=== PATIENT | female | born 2000 | race Caucasian/White ===

== ENCOUNTER 2021-11-24 10:08 | Inpatient (IN) | payer OTHER ==
[~2021-11-24] VITALS: Ht 167.6 cm; Wt 59.9 kg
[2021-11-24] MEDS ORDERED: QUEtiapine FUMARATE 25 MG TABLET PO ONE (10:45)
[2021-11-24] MEDS ORDERED: DIAZEPAM 5 MG/ML 2 ML SYRINGE IM ONE (10:45)
[2021-11-24] MEDS ORDERED: DiphenhydrAMINE HCL 50 MG/ML VIAL IM ONE (12:45)
[2021-11-24] MEDS ORDERED: HALOPERIDOL LACTATE 5 MG/ML VIAL IM ONE (12:45)
[2021-11-24] MEDS ORDERED: ZIPRASIDONE MESYLATE 20 MG/VIAL IM ONE (14:00)
[2021-11-24] MEDS ORDERED: QUEtiapine FUMARATE 100 MG TABLET PO PRN (14:30)
[2021-11-24] MEDS ORDERED: ZOLPIDEM TARTRATE 10 MG TABLET PO PRN (14:30)
[2021-11-24] MEDS ORDERED: LORazepam 2 MG TABLET PO PRN (14:30)
[2021-11-24 14:39] LABS: COVID AG,FIA SOURCE NASAL SWAB
[2021-11-24 15:21] LABS: BASOPHILS % (AUTO) 0.3 % (0.0-2.0); EOSINOPHILS % (AUTO) 0.1 % (1.0-6.0); HEMATOCRIT 38.3 % (36-46); LYMPHOCYTES # (AUTO) 1.4 K/uL (1.0-4.8); LYMPHOCYTES % (AUTO) 17.6 % (22.0-44.0); MEAN CORPUSCULAR HEMOGLOBIN 30.3 pg (26.0-34.0); MEAN CORPUSCULAR HGB CONC 33.9 G/dL (31.0-37.0); MEAN CORPUSCULAR VOLUME 90 fL (80-100); MONOCYTES # (AUTO) 0.3 K/uL (0.1-1.0); MONOCYTES % (AUTO) 3.6 % (2.0-9.0); NEUTROPHILS # (AUTO) 6.1 K/uL (1.8-7.7); NEUTROPHILS % (AUTO) 78.4 % (40.0-70.0); PLATELET COUNT (AUTO) 216 K/uL (150-450); RED BLOOD CELL COUNT(AUTO) 4.28 MIL/uL (4.00-5.20); RED CELL DISTRIBUTION WIDTH 12.8 % (11.5-14.5)
[2021-11-24 15:30] LABS: ANION GAP 8 mmol/L (8-16); CARBON DIOXIDE 26 mmol/L (22-29); CHLORIDE 108 mmol/L (98-107); CREATININE 0.72 mg/dL (0.60-1.30); GLOMERULAR FILTR. RATE CALC > 60 mL/min (>60); GLUCOSE,RANDOM 109 mg/dL (70-110); POTASSIUM 3.2 mmol/L (3.5-5.1); SODIUM SERUM 142 mmol/L (136-145); UREA NITROGEN, BLOOD 7 mg/dL (7-18)
[2021-11-24 15:36] LABS: ALANINE AMINOTRANSFERASE 17 U/L (12-78); ALKALINE PHOSPHATASE 62 U/L (46-116); ASPARTATE AMINOTRANSFERASE 14 U/L (15-37); BILIRUBIN,TOTAL 0.6 mg/dL (0.1-1.0); TOTAL PROTEIN, SERUM 7.5 g/dL (6.4-8.2)
[2021-11-24] MEDS ORDERED: POTASSIUM CHLORIDE 10% 40 MEQ/30 ML LIQUID UDCUP PO ONE (15:45)
[2021-11-24 16:24] LABS: AMPHET/METH SCREEN,URINE NEGATIVE (NEGATIVE); BARBITURATE SCREEN, URINE NEGATIVE (NEGATIVE); BENZODIAZEPINES SCREEN,URINE POSITIVE (NEGATIVE); CANNABINOID SCREEN,URINE POSITIVE (NEGATIVE); COCAINE SCREEN,URINE NEGATIVE (NEGATIVE); METHADONE SCREEN, URINE NEGATIVE (NEGATIVE); OPIATE SCREEN,URINE NEGATIVE (NEGATIVE)
[2021-11-24 16:25] LABS: PHENCYCLIDINE SCREEN,URINE NEGATIVE (NEGATIVE)
[2021-11-24 17:30] VITALS: BP 118/70
[2021-11-25 00:12] VITALS: BP 112/67
[2021-11-25] MEDS ORDERED: ONDANSETRON HCL 4 MG TABLET PO PRN (07:00)
[2021-11-25] MEDS ORDERED: PETROLATUM,WHITE 28 GM JELLY TP PRN (07:00)
[2021-11-25] MEDS ORDERED: LOPERAMIDE HCL 2 MG CAPSULE PO PRN (07:00)
[2021-11-25] MEDS ORDERED: DOCUSATE SODIUM 100 MG CAPSULE PO PRN (07:00)
[2021-11-25] MEDS ORDERED: CloNIDine HCL 0.1 MG TABLET PO PRN (07:00)
[2021-11-25] MEDS ORDERED: NICOTINE 14 MG/24 HOUR PATCH TD PRN (07:00)
[2021-11-25] MEDS ORDERED: MAG HYDROX/AL HYDROX/SIMETH ES 30 ML SUSPENSION UDCUP PO PRN (07:00)
[2021-11-25] MEDS ORDERED: ALBUTEROL SULFATE HFA 90 MCG/PUFF 8 GM INHALER IH PRN (07:00)
[2021-11-25] MEDS ORDERED: ACETAMINOPHEN 325 MG TABLET PO PRN (07:00)
[2021-11-25] MEDS ORDERED: GuaiFENesin/D-METHORPHAN [SUGAR-FREE] 200-20MG/10 ML SYRUP UDCUP PO PRN (07:00)
[2021-11-25] MEDS ORDERED: MAGNESIUM HYDROXIDE SUSPENSION 30 ML UDCUP PO PRN (07:00)
[2021-11-25] MEDS ORDERED: IBUPROFEN 400 MG TABLET PO PRN (07:00)
[2021-11-25 08:15] VITALS: BP 120/72
[2021-11-25] MEDS ORDERED: QUET100T34 PO (09:56)
[2021-11-25] MEDS ORDERED: LAMO100 PO (09:56)
[2021-11-25] MEDS: LamoTRIgine 100 MG TABLET PO SCH ×2 (10:00→20:08)
[2021-11-25 16:37] VITALS: BP 110/72
[2021-11-25] MEDS: QUEtiapine FUMARATE 100 MG TABLET PO SCH (20:08)
[2021-11-26 06:05] VITALS: BP 104/62
[2021-11-26 08:19] VITALS: BP 116/74
[2021-11-26] MEDS: LamoTRIgine 100 MG TABLET PO SCH ×2 (08:19→20:37)
[2021-11-26] MEDS ORDERED: NORG1TAB14 PO (14:47)
[2021-11-26 16:54] VITALS: BP 119/82
[2021-11-26] MEDS: QUEtiapine FUMARATE 100 MG TABLET PO SCH (20:37)
[2021-11-27 00:18] VITALS: BP 112/80
[2021-11-27 08:12] VITALS: BP 125/74
[2021-11-27] MEDS: LamoTRIgine 100 MG TABLET PO SCH (09:02)
[2021-11-27] MEDS ORDERED: LAMO100 PO (12:48)
[2021-11-27] MEDS ORDERED: QUET100T34 PO (12:48)
[2021-11-27 16:16] VITALS: BP 109/69
== END 2021-11-27 16:30 | disposition home or self-care (01) | DRG 885 ==
LOC: EMS 10:10 → B3A 15:46
PROVIDERS: ADMIT Psychiatry & Neurology Psychiatry; ATTEND Psychiatry & Neurology Psychiatry
DX: F31.2 Bipolar disorder, current episode manic severe with psychotic features (principal); Z20.822 Contact with and (suspected) exposure to COVID-19; F29 Unspecified psychosis not due to a substance or known physiological condition; G47.00 Insomnia, unspecified; E87.6 Hypokalemia; Z91.51 Personal history of suicidal behavior
CPT/HCPCS: 80053; 84132; 85025; G0480; J1200; J1630; J3486

== ENCOUNTER 2022-01-24 22:42 | Inpatient (IN) | payer OTHER ==
[~2022-01-24] VITALS: Ht 167.6 cm; Wt 60.3 kg
[~2022-01-24 22:42] MED LIST: LAMO100 PO; QUET100T34 PO
[2022-01-24] MEDS ORDERED: PERTUSS(ACELL),DIPH,TET VAC/PF 0.5 ML SYRINGE IM. ONE (23:30)
[2022-01-24] MEDS ORDERED: SODIUM CHLORIDE 0.9% 250 ML IRRIG SOLUTION BOTTLE IRRIG ONE (23:30)
[2022-01-24 23:50] LABS: COVID AG,FIA SOURCE NASOPHARYNGEAL
[2022-01-25] MEDS ORDERED: ZOLPIDEM TARTRATE 10 MG TABLET PO PRN (06:00)
[2022-01-25] MEDS ORDERED: HALOPERIDOL 5 MG TABLET PO PRN (06:00)
[2022-01-25] MEDS ORDERED: LORazepam 2 MG TABLET PO PRN (06:00)
[2022-01-25 20:32] VITALS: BP 119/69
[2022-01-26] MEDS ORDERED: PETROLATUM,WHITE 28 GM JELLY TP PRN (07:45)
[2022-01-26] MEDS ORDERED: ALBUTEROL SULFATE HFA 90 MCG/PUFF 8 GM INHALER IH PRN (07:45)
[2022-01-26] MEDS ORDERED: LOPERAMIDE HCL 2 MG CAPSULE PO PRN (07:45)
[2022-01-26] MEDS ORDERED: DOCUSATE SODIUM 100 MG CAPSULE PO PRN (07:45)
[2022-01-26] MEDS ORDERED: ONDANSETRON HCL 4 MG TABLET PO PRN (07:45)
[2022-01-26] MEDS ORDERED: CloNIDine HCL 0.1 MG TABLET PO PRN (07:45)
[2022-01-26] MEDS ORDERED: GuaiFENesin/D-METHORPHAN [SUGAR-FREE] 200-20MG/10 ML SYRUP UDCUP PO PRN (07:45)
[2022-01-26] MEDS ORDERED: ACETAMINOPHEN 325 MG TABLET PO PRN (07:45)
[2022-01-26] MEDS ORDERED: NICOTINE 14 MG/24 HOUR PATCH TD PRN (07:45)
[2022-01-26] MEDS ORDERED: MAG HYDROX/AL HYDROX/SIMETH ES 30 ML SUSPENSION UDCUP PO PRN (07:45)
[2022-01-26] MEDS ORDERED: MAGNESIUM HYDROXIDE SUSPENSION 30 ML UDCUP PO PRN (07:45)
[2022-01-26 08:19] VITALS: BP 116/71
[2022-01-26] MEDS ORDERED: LEVONORGESTREL 1.5 MG TABLET PO ONE (12:00)
[2022-01-26] MEDS: IBUPROFEN 400 MG TABLET PO PRN (12:33)
[2022-01-26 20:21] VITALS: BP 116/69
[2022-01-26] MEDS ORDERED: QUEtiapine FUMARATE 100 MG TABLET PO SCH (21:00)
[2022-01-27 08:22] VITALS: BP 109/63
[2022-01-27] MEDS ORDERED: QUET100T34 PO (10:51)
[2022-01-27] MEDS: IBUPROFEN 400 MG TABLET PO PRN (12:22)
== END 2022-01-27 13:26 | disposition home or self-care (01) | DRG 885 ==
LOC: EMS 22:43 → B3A 01-25 15:19
PROVIDERS: ADMIT Psychiatry & Neurology Psychiatry; ATTEND Psychiatry & Neurology Psychiatry
PROC: 3E0234Z Introduction of Serum, Toxoid and Vaccine into Muscle, Percutaneous Approach (ICD-10-PCS; principal; 2022-01-24)
DX: F31.2 Bipolar disorder, current episode manic severe with psychotic features (principal); Z20.822 Contact with and (suspected) exposure to COVID-19; F12.10 Cannabis abuse, uncomplicated; G47.00 Insomnia, unspecified; Z91.51 Personal history of suicidal behavior; Z23 Encounter for immunization
CPT/HCPCS: 90715; 99285; Q9967

== ENCOUNTER 2022-04-11 23:22 | Inpatient (IN) | payer OTHER ==
[~2022-04-11] VITALS: Ht 167.6 cm; Wt 63.0 kg
[~2022-04-11 23:22] MED LIST changes: -LAMO100 PO
[2022-04-11 23:54] LABS: BASOPHILS % (AUTO) 0.5 % (0.0-2.0); EOSINOPHILS % (AUTO) 0.6 % (1.0-6.0); HEMATOCRIT 37.8 % (36-46); HEMOGLOBIN 12.6 g/dL (12.0-16.0); LYMPHOCYTES # (AUTO) 2.2 K/uL (1.0-4.8); LYMPHOCYTES % (AUTO) 38.3 % (22.0-44.0); MEAN CORPUSCULAR HEMOGLOBIN 30.8 pg (26.0-34.0); MEAN CORPUSCULAR HGB CONC 33.4 G/dL (31.0-37.0); MEAN CORPUSCULAR VOLUME 92 fL (80-100); MONOCYTES # (AUTO) 0.3 K/uL (0.1-1.0); NEUTROPHILS # (AUTO) 3.1 K/uL (1.8-7.7); NEUTROPHILS % (AUTO) 54.6 % (40.0-70.0); PLATELET COUNT (AUTO) 237 K/uL (150-450); RED CELL DISTRIBUTION WIDTH 13.6 % (11.5-14.5)
[2022-04-12 00:08] LABS: ANION GAP 7 mmol/L (8-16); CALCIUM, TOTAL 9.2 mg/dL (8.8-10.5); CARBON DIOXIDE 31 mmol/L (22-29); CHLORIDE 102 mmol/L (98-107); CREATININE 0.67 mg/dL (0.60-1.30); GLOMERULAR FILTR. RATE CALC > 60 mL/min (>60); GLUCOSE,RANDOM 130 mg/dL (70-110); POTASSIUM 3.6 mmol/L (3.5-5.1); SODIUM SERUM 140 mmol/L (136-145); UREA NITROGEN, BLOOD 6 mg/dL (7-18)
[2022-04-12 00:13] LABS: ALANINE AMINOTRANSFERASE 14 U/L (12-78); ALBUMIN 3.7 g/dL (3.4-5.0); ALKALINE PHOSPHATASE 64 U/L (46-116); ASPARTATE AMINOTRANSFERASE 11 U/L (15-37); BILIRUBIN,TOTAL 0.3 mg/dL (0.1-1.0); TOTAL PROTEIN, SERUM 7.4 g/dL (6.4-8.2)
[2022-04-12 01:48] LABS: COVID AG,FIA SOURCE NASAL SWAB
[2022-04-12 02:15] VITALS: BP 125/80
[2022-04-12] MEDS: ZOLPIDEM TARTRATE 10 MG TABLET PO PRN (02:40)
[2022-04-12 08:01] VITALS: BP 110/64
[2022-04-12] MEDS: LORazepam 2 MG TABLET PO PRN (09:46)
[2022-04-12] MEDS: HALOPERIDOL 5 MG TABLET PO PRN (09:46)
[2022-04-12 10:05] LABS: APPEARANCE,URINE TURBID (CLEAR); BILIRUBIN,URINE NEGATIVE (NEGATIVE); GLUCOSE, URINE (UA) NEGATIVE (NEGATIVE); KETONES,URINE NEGATIVE (NEGATIVE); LEUKOCYTE ESTERASE ,URINE SMALL (NEGATIVE); NITRATE,URINE POSITIVE (NEGATIVE); OCCULT BLOOD,URINE NEGATIVE (NEGATIVE); PROTEIN,URINE TRACE mg/dL (NEGATIVE); SPECIFIC GRAVITIY, URINE 1.018 (1.003-1.030); UROBILINOGEN,URINE <=1.0 mg/dL (<=1.0)
[2022-04-12 10:12] LABS: AMPHET/METH SCREEN,URINE NEGATIVE (NEGATIVE); BARBITURATE SCREEN, URINE NEGATIVE (NEGATIVE); BENZODIAZEPINES SCREEN,URINE NEGATIVE (NEGATIVE); CANNABINOID SCREEN,URINE POSITIVE (NEGATIVE); COCAINE SCREEN,URINE NEGATIVE (NEGATIVE); METHADONE SCREEN, URINE NEGATIVE (NEGATIVE); OPIATE SCREEN,URINE NEGATIVE (NEGATIVE)
[2022-04-12 10:13] LABS: PHENCYCLIDINE SCREEN,URINE NEGATIVE (NEGATIVE)
[2022-04-12 10:58] LABS: BACTERIA,URINE Moderate /HPF (None Seen); RBC,URINE None Seen /HPF (0-2); SQUAMOUS EPITHELIAL CELL,UR Few /LPF (None Seen); WBC,URINE 0-2 /HPF (0-5)
[2022-04-12 10:59] LABS: AMORPHOUS SEDIMENT,UR Moderate /LPF (None Seen)
[2022-04-12] MEDS ORDERED: ONDANSETRON HCL 4 MG TABLET PO PRN (12:45)
[2022-04-12] MEDS ORDERED: MAG HYDROX/AL HYDROX/SIMETH ES 30 ML SUSPENSION UDCUP PO PRN (12:45)
[2022-04-12] MEDS ORDERED: CloNIDine HCL 0.1 MG TABLET PO PRN (12:45)
[2022-04-12] MEDS ORDERED: LOPERAMIDE HCL 2 MG CAPSULE PO PRN (12:45)
[2022-04-12] MEDS ORDERED: MAGNESIUM HYDROXIDE SUSPENSION 30 ML UDCUP PO PRN (12:45)
[2022-04-12] MEDS ORDERED: IBUPROFEN 400 MG TABLET PO PRN (12:45)
[2022-04-12] MEDS ORDERED: GuaiFENesin/D-METHORPHAN [SUGAR-FREE] 200-20MG/10 ML SYRUP UDCUP PO PRN (12:45)
[2022-04-12] MEDS ORDERED: PETROLATUM,WHITE 28 GM JELLY TP PRN (12:45)
[2022-04-12] MEDS ORDERED: ALBUTEROL SULFATE HFA 90 MCG/PUFF 8 GM INHALER IH PRN (12:45)
[2022-04-12] MEDS ORDERED: DOCUSATE SODIUM 100 MG CAPSULE PO PRN (12:45)
[2022-04-12] MEDS ORDERED: ACETAMINOPHEN 325 MG TABLET PO PRN (12:45)
[2022-04-12 16:00] VITALS: BP 101/58
[2022-04-12] MEDS: LamoTRIgine 25 MG TABLET PO SCH (20:56)
[2022-04-12] MEDS: QUEtiapine FUMARATE 300 MG TABLET PO SCH (20:56)
[2022-04-12] MEDS ORDERED: QUEtiapine FUMARATE 100 MG TABLET PO SCH (21:00)
[2022-04-13] MEDS: HALOPERIDOL 5 MG TABLET PO PRN ×2 (08:08→14:31)
[2022-04-13] MEDS: QUEtiapine FUMARATE 100 MG TABLET PO SCH (08:08)
[2022-04-13 08:11] VITALS: BP 115/73
[2022-04-13] MEDS: NICOTINE 14 MG/24 HOUR PATCH TD PRN (08:59)
[2022-04-13 11:16] LABS: APPEARANCE,URINE HAZY (CLEAR); BILIRUBIN,URINE NEGATIVE (NEGATIVE); GLUCOSE, URINE (UA) NEGATIVE (NEGATIVE); KETONES,URINE NEGATIVE (NEGATIVE); LEUKOCYTE ESTERASE ,URINE SMALL (NEGATIVE); NITRATE,URINE POSITIVE (NEGATIVE); OCCULT BLOOD,URINE LARGE (NEGATIVE); PROTEIN,URINE TRACE mg/dL (NEGATIVE); SPECIFIC GRAVITIY, URINE 1.018 (1.003-1.030); UROBILINOGEN,URINE <=1.0 mg/dL (<=1.0)
[2022-04-13 11:47] LABS: BACTERIA,URINE None Seen /HPF (None Seen); RBC,URINE 51-100 /HPF (0-2); SQUAMOUS EPITHELIAL CELL,UR Few /LPF (None Seen)
[2022-04-13] MEDS: LORazepam 2 MG TABLET PO PRN ×2 (15:36→20:32)
[2022-04-13 16:00] VITALS: BP 110/70
[2022-04-13 20:32] VITALS: BP 115/72
[2022-04-13] MEDS: LamoTRIgine 25 MG TABLET PO SCH (20:32)
[2022-04-13] MEDS: QUEtiapine FUMARATE 300 MG TABLET PO SCH (20:32)
[2022-04-14] MEDS: QUEtiapine FUMARATE 100 MG TABLET PO SCH (08:04)
[2022-04-14 08:30] VITALS: BP 125/81
[2022-04-14 16:33] VITALS: BP 122/79
[2022-04-14] MEDS: LORazepam 2 MG TABLET PO PRN (17:34)
[2022-04-14] MEDS: NICOTINE 14 MG/24 HOUR PATCH TD PRN (18:36)
[2022-04-14] MEDS: QUEtiapine FUMARATE 300 MG TABLET PO SCH (20:22)
[2022-04-14] MEDS: LamoTRIgine 25 MG TABLET PO SCH (20:22)
[2022-04-15] MEDS: LORazepam 2 MG TABLET PO PRN ×3 (04:44→16:44)
[2022-04-15] MEDS: HALOPERIDOL 5 MG TABLET PO PRN ×2 (04:44→16:44)
[2022-04-15 08:04] VITALS: BP 123/80
[2022-04-15] MEDS: QUEtiapine FUMARATE 100 MG TABLET PO SCH (09:10)
[2022-04-15 16:02] VITALS: BP 112/72
[2022-04-15] MEDS: LamoTRIgine 25 MG TABLET PO SCH (20:02)
[2022-04-15] MEDS: QUEtiapine FUMARATE 300 MG TABLET PO SCH (20:03)
[2022-04-16 08:13] VITALS: BP 100/58
[2022-04-16] MEDS: QUEtiapine FUMARATE 100 MG TABLET PO SCH (09:00)
[2022-04-16] MEDS: LORazepam 2 MG TABLET PO PRN ×2 (13:31→18:15)
[2022-04-16 16:34] VITALS: BP 99/55
[2022-04-16] MEDS: QUEtiapine FUMARATE 300 MG TABLET PO SCH (20:18)
[2022-04-16] MEDS: LamoTRIgine 25 MG TABLET PO SCH (20:18)
[2022-04-16] MEDS: ZOLPIDEM TARTRATE 10 MG TABLET PO PRN (22:26)
[2022-04-17] MEDS: QUEtiapine FUMARATE 100 MG TABLET PO SCH (08:12)
[2022-04-17 08:54] VITALS: BP 127/72
[2022-04-17] MEDS ORDERED: QUET100T34 PO (09:43)
[2022-04-17] MEDS ORDERED: QUET300T19 PO (09:43)
[2022-04-17] MEDS ORDERED: LAMO25TA25 PO (09:43)
[2022-04-17] MEDS: LORazepam 2 MG TABLET PO PRN (11:05)
== END 2022-04-17 12:40 | disposition home or self-care (01) | DRG 885 ==
LOC: EMS 23:23 → 3EC 04-12 02:28
PROVIDERS: ADMIT Psychiatry & Neurology Psychiatry; ATTEND Psychiatry & Neurology Psychiatry
DX: F31.2 Bipolar disorder, current episode manic severe with psychotic features (principal); R45.851 Suicidal ideations; Z20.822 Contact with and (suspected) exposure to COVID-19; F41.9 Anxiety disorder, unspecified; G47.00 Insomnia, unspecified; F12.10 Cannabis abuse, uncomplicated; R73.9 Hyperglycemia, unspecified; F19.10 Other psychoactive substance abuse, uncomplicated; Z91.51 Personal history of suicidal behavior; Z91.14 Patient's other noncompliance with medication regimen; Z79.899 Other long term (current) drug therapy
CPT/HCPCS: 80053; 80307; 81001; 84703; 85025; 87086; 87186; 99285; G0480